=== PATIENT | male | born 1980 | race Caucasian/White ===

== ENCOUNTER 2017-07-16 20:53 | Emergency (ER) | payer OTHER ==
[~2017-07-16] VITALS: Ht 177.8 cm; Wt 91.0 kg
[2017-07-16] MEDS ORDERED: ONDANSETRON ODT 4 MG PO ONE (21:30)
[2017-07-16] MEDS ORDERED: KETOROLAC 30 MG/1 ML IM ONE (21:30)
[2017-07-16] MEDS: DIAZEPAM 5 MG TABLET PO ONE ×2 (21:30→21:44)
[2017-07-16 21:31] LABS: HEMATOCRIT 46.2 % (39.2-51.8); HEMOGLOBIN 16.1 g/dL (13.7-18.0); WHITE BLOOD COUNT 9.5 x10^3/uL (3.4-10)
[2017-07-16] MEDS ORDERED: KETOROLAC 30 MG/1 ML ONE (21:41)
[2017-07-16] MEDS ORDERED: ONDANSETRON ODT 4 MG ONE (21:41)
[2017-07-16] MEDS ORDERED: DIAZEPAM 5 MG TABLET ONE (21:41)
[2017-07-16 21:43] LABS: BLOOD UREA NITROGEN 13 mg/dL (7-18)
[2017-07-16 21:49] LABS: IS PT STATUS REG ER OR PRE ER? YES
[2017-07-16 23:03] VITALS: BP 108/78
== END 2017-07-16 23:10 | disposition home or self-care (01) ==
LOC: ED 23:04
DX: R07.89 Other chest pain (principal); R11.2 Nausea with vomiting, unspecified
CPT/HCPCS: 36415; 71020; 80048; 82040; 84484; 85025; 93005; 96372; 99285; J1885; Q0162